=== PATIENT | male | born 1940 | race Caucasian/White ===

== ENCOUNTER 2025-02-26 07:26 | Emergency (ER) | payer MEDICARE, OTHER | END 2025-02-26 09:25 | disposition home or self-care (01) | LOC: JD.ED 07:26 | DX: J18.9 Pneumonia, unspecified organism (principal); I10 Essential (primary) hypertension; E78.00 Pure hypercholesterolemia, unspecified; Z90.49 Acquired absence of other specified parts of digestive tract; Z95.0 Presence of cardiac pacemaker; Z79.899 Other long term (current) drug therapy | CPT/HCPCS: 71046; 71046-26; 87428-QW; 87651; 99283 ==